=== PATIENT | female | born 1975 | race Caucasian/White ===

== ENCOUNTER 2017-04-23 07:30 | Inpatient (IN) | payer OTHER ==
[~2017-04-23] VITALS: Ht 154.9 cm; Wt 102.1 kg
[2017-04-23 10:18] LABS: HEMOGLOBIN 7.5 gm/dl (12.3-15.3); RED BLOOD COUNT 3.66 M/UL (4.00-5.10); WHITE BLOOD COUNT 8.3 K/UL (4.5-11.0)
[2017-04-24 03:30] LABS: HEMOGLOBIN 6.7 gm/dl (12.3-15.3)
[2017-04-25] MEDS ORDERED: SUBUTEX 8 MG TAB8 MG SL (12:18)
== END 2017-04-25 12:58 | disposition home or self-care (01) | DRG 765 ==
LOC: OB 08:31
PROVIDERS: ADMIT Obstetrics & Gynecology
PROC: 3E0R3CZ (ICD-10-PCS; 2017-04-23)
PROC: 02HV33Z Insertion of Infusion Device into Superior Vena Cava, Percutaneous Approach (ICD-10-PCS; 2017-04-23)
PROC: 3E0234Z Introduction of Serum, Toxoid and Vaccine into Muscle, Percutaneous Approach (ICD-10-PCS; 2017-04-23)
PROC: 10D00Z1 Extraction of Products of Conception, Low, Open Approach (ICD-10-PCS; principal; 2017-04-23 07:30)
DX: O34.219 Maternal care for unspecified type scar from previous cesarean delivery (principal); O99.324 Drug use complicating childbirth; F11.20 Opioid dependence, uncomplicated; Z68.42 Body mass index [BMI] 45.0-49.9, adult; O10.02 Pre-existing essential hypertension complicating childbirth; O99.354 Diseases of the nervous system complicating childbirth; N85.8 Other specified noninflammatory disorders of uterus; O99.214 Obesity complicating childbirth; E66.01 Morbid (severe) obesity due to excess calories; O99.02 Anemia complicating childbirth; D64.9 Anemia, unspecified; O09.523 Supervision of elderly multigravida, third trimester; O09.33 Supervision of pregnancy with insufficient antenatal care, third trimester; O26.893 Other specified pregnancy related conditions, third trimester; Z67.41 Type O blood, Rh negative; G40.909 Epilepsy, unspecified, not intractable, without status epilepticus; O99.344 Other mental disorders complicating childbirth; F32.9 Major depressive disorder, single episode, unspecified; Z3A.39 39 weeks gestation of pregnancy; Z37.0 Single live birth; O99.613 Diseases of the digestive system complicating pregnancy, third trimester; K59.09 Other constipation; G43.909 Migraine, unspecified, not intractable, without status migrainosus; Z29.13 Encounter for prophylactic Rho(D) immune globulin; Z86.14 Personal history of Methicillin resistant Staphylococcus aureus infection; Z87.442 Personal history of urinary calculi; Z79.899 Other long term (current) drug therapy; Z88.5 Allergy status to narcotic agent; Z88.3 Allergy status to other anti-infective agents; Z82.49 Family history of ischemic heart disease and other diseases of the circulatory system; Z82.0 Family history of epilepsy and other diseases of the nervous system; Z82.79 Family history of other congenital malformations, deformations and chromosomal abnormalities; Z83.49 Family history of other endocrine, nutritional and metabolic diseases
CPT/HCPCS: 71010; 80307; 81001; 82800; 85014; 85018; 85025; 85461; 86850; 86900; 86901; 90715; C9113; J1580; J2250; J2270; J2274; J2405; J2590; J2765; J2790; J3010; J7120